=== PATIENT | male | born 1960 | race Caucasian/White ===

== ENCOUNTER → 2018-04-07 10:06 | Outpatient (CLI) | payer MEDICARE, MEDICAID, SELFPAY ==
--- NOTE | 2018-04-07 | DI.RAD.S_ITS ---
PROCEDURE: XR KNEE RT 3V INDICATIONS: RIGHT KNEE PAIN TECHNIQUE: 3 views of the right knee were acquired. COMPARISON: None. FINDINGS: Bones: No fractures or dislocations. No suspicious bony lesions. Mild tricompartment osteophyte is is seen. Mild lateral subluxation of right patella is also noted. Soft tissues: No joint effusion. No suspicious soft tissue calcifications. IMPRESSION: Mild tricompartmental osteoarthritis and mild lateral subluxation of right patella. Dictated by: Bean Brenner M.D. on 04/07/2018 at 10:58 Approved by: Bean Brenner M.D. on 04/07/2018 at 10:59
== END ==
PROVIDERS: Visit Provider Family Medicine
DX: M17.11 Unilateral primary osteoarthritis, right knee (principal); S83.011A Lateral subluxation of right patella, initial encounter; M25.561 Pain in right knee
CPT/HCPCS: 73562